=== PATIENT | female | born 1960 | race Caucasian/White ===

== ENCOUNTER 2022-08-21 10:56 | Outpatient (CLI) | payer BC | END 2022-08-21 10:57 | disposition home or self-care (01) | LOC: CSHMAMMO 10:56 | PROVIDERS: ATTEND Obstetrics & Gynecology | DX: Z12.31 Encounter for screening mammogram for malignant neoplasm of breast (principal); Z85.820 Personal history of malignant melanoma of skin | CPT/HCPCS: 77063; 77067 ==

== ENCOUNTER 2023-10-29 09:50 | Outpatient (CLI) | payer BC | END 2023-10-29 09:51 | disposition home or self-care (01) | LOC: CSHMAMMO 09:50 | PROVIDERS: ATTEND Internal Medicine | DX: Z12.31 Encounter for screening mammogram for malignant neoplasm of breast (principal); M81.0 Age-related osteoporosis without current pathological fracture; M85.851 Other specified disorders of bone density and structure, right thigh; M85.852 Other specified disorders of bone density and structure, left thigh; Z85.820 Personal history of malignant melanoma of skin | CPT/HCPCS: 77063; 77067; 77080 ==

== ENCOUNTER 2024-10-31 10:33 | Outpatient (CLI) | payer BC | END 2024-10-31 10:34 | disposition home or self-care (01) | LOC: CSHMAMMO 10:33 | PROVIDERS: ATTEND Obstetrics & Gynecology | DX: Z12.31 Encounter for screening mammogram for malignant neoplasm of breast (principal); Z85.820 Personal history of malignant melanoma of skin | CPT/HCPCS: 77063; 77067 ==